=== PATIENT | female | born 2000 | race Caucasian/White ===

== ENCOUNTER 2024-10-14 07:46 | Outpatient (CLI) | payer BC, SELFPAY ==
--- OUTSIDE RECORDS SUMMARY | 2024-10-21 01:11 | XMS_ITS | Data Portability ---
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 She is going to try to exercise a little bit more watch her diet. 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 Sleep study given snoring possible apnea and fatigue she will see me back in 3 months. Healthy lifestyle care instructions [email or web address] Not available 08/26/2024 14:52:26 Plan of Treatment Reminders Order Date Submit Date Provider Last Modified By Organization Details Last Modified Time Details Appointments ANY 15 2024 09:30A Vianney Cruz MD Not available Not available Not available Lab lipid panel, serum 2023 024 [facility], [address], [place], [address], 09/14/2024 12:53:18 vitamin D, 25-hydrox y, total, serum 2023 024 [employer] [facility], [address], [place], [address], 09/14/2024 12:53:13 CBC w/ auto diff 2023 024 [employer] [facility], [address], [place], [address], 09/14/2024 12:52:44 CMP, serum or plasma 2023 024 [facility], [address], [place], [address], 09/14/2024 12:52:50 T3, free, serum or plasma 2023 024 [facility], [address], [place], [address], 09/14/2024 12:52:55 TSH, serum or plasma 2023 024 [facility], [address], [place], [address], 09/14/2024 12:53:02 T4, free, serum 2023 024 [facility], [address], [place], [address], 09/14/2024 12:52:26 iron + TIBC + ferritin, serum 2023 024 [facility], [address], [place], [address], 09/13/2024 09:36:36 vitamin B12 + folate, serum or blood 2023 024 [facility], [address], [place], [address], 09/14/2024 12:53:08 Referral gynecolog ist referral 2023 024 brett Huerta MD, [address], [address], [place], [address], 10/19/2024 16:11:51 Procedures None recorded. Surgeries None recorded. Imaging home sleep study 2023 024 [facility] ([facility]), [address], [place], [address], 10/06/2024 10:08:03 Medication Orders None recorded. Patient TargetsNo targets recorded. 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 Problems Name Problem SNOMED Code Status Onset Date Resolution Date Notes Provider Name and Address Organization Details Recorded Time Screening for cardiovascular system disease Active 2023 ERASTO [place], [place] - [facility] 4 15:32:04 Vitamin D deficiency 22394583 Active 2023 ERASTO [place] [facility] 4 15:32:05 Serum iron below reference range 513117882 Active 2023 ERASTO [place] [facility] 4 15:32:06 Fatigue 41503625 Active 2023 ERASTO [place] [facility] 4 15:32:07 Obesity 452872253 Active 2023 ERASTO [place] [facility] 4 15:32:07 Problem Notes None recorded. Procedures Surgical History Date Name Laterality Status Provider Name and Address Organization Details Recorded Time Tonsillectomy completed Lucretia Bennett [place] - [facility] 08/23/2024 14:34:20 Imaging Results None recorded. Procedure Notes None recorded. Medical Equipment None Reported. Allergies No known drug allergies Medications Name Sig Start Date Stop Date Status Note LastModified by Organization Details LastModified Time methylpredniso lone 4 mg tablets in a dose pack TAKE 6 TABLETS ON DAY 1 DIRECTED ON PACKAGE AND DECREASE BY 1 TAB EACH DAY FOR A TOTAL OF 6 DAYS active Not Available Not Available No t Available escitalopram 10 mg tablet TAKE 1 TABLET BY MOUTH EVERY DAY active Not Available Not Available No t Available Jyothi 0.25 mg-35 mcg tablet TAKE 1 TABLET BY MOUTH DAILY active Not Available Not Available No t Available Vitals Date Recorded Body height Provider Name an d Address Organization Details Last Updated DateTime 08/23/2024 160.02 cm ERASTO Menod[place] - [facility] 14:29:31 Date Recorded Body mass index (BMI) Body weight Provider Name and Address Organization Details Last Updated DateTime 08/23/2024 33.9 kg/m2 66102.86 g Lucretia Bennett [place] - [facility] 1 10/23/2023 14:29:34 Date Recorded Heart rate Provider Name an d Address Organization Details Last Updated DateTime 08/23/2024 89 /min Lucretiaxiomara Bennett [place] [facility] 14:44:32 Date Recorded Oxygen saturation Oxygen saturation in Arterial blood by Pulse oximetry Provider Name and Address Organization Details Last Updated DateTime 08/23/2024 98 % 98 % Lucretiaxiomara Bennett [place] [facility] 08/23/2024 14:44:35 Date Recorded Systolic blood pressure Diastolic blood pressure Provider Name and Address Organization Details Last Updated DateTime 08/23/2024 132 mm[Hg] 68 mm[Hg] Lucretia Bennett MA [facility] 08/23/2024 14:45:01 Social History Question Answer Notes LastModified by Organizat ion Details LastModified Time Tobacco Smoking Status Never Smoker Lucretia Bennett MA [facility] 08/23/2024 14:32:52 Do You Have An Advance Directive? No Information n ot available 08/23/2024 What Is Your Level Of Alcohol Consumption? Occasional Information not available 08/23/2024 Are You Blind Or Do You Have Difficulty Seeing? No Information n ot available 08/23/2024 What Is Your Level Of Caffeine Consumption? Moderate Information not available 08/23/2024 In The 14 Days Before Symptom Onset, Have You Had Close Contact With A Laboratory-confirm ed COVID-19 While That Case Was Ill? No Information n ot available 08/23/2024 In The 14 Days Before Symptom Onset, Have You Had Close Contact With A Person Who Is Under Investigation For COVID-19 While That Person Was Ill? No Information not available 08/23/2024 Have You Been To An Area Known To Be High Risk For COVID-19? No Information not available 08/23/2024 Are You Currently Employed? Yes Information not available 08/23/2024 Are You Deaf Or Do You Have Serious Difficulty Hearing? No Information not available 08/23/2024 What Type Of Diet Are You Following? 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 No Information not available 08/23/2024 What Was The Date Of Your Most Recent Tobacco Screening? 08/23/2024 Information not available 08/23/2024 What Is Your Relationship Status? Single Information not available 08/23/2024 Do You Use Your Seat Belt Or Car Seat Routinely? Yes Information not available 08/23/2024 Do You Have Smoke And Carbon Monoxide Detectors In Your Home? Yes Information not available 08/23/2024 Do You Feel Stressed (tense, Restless, Nervous, Or Anxious, Or Unable To Sleep At Night)? [id number] Information not available 08/23/2024 Do You Use Any Illicit Or Recreational Drugs? No Information not available 08/23/2024 Do You Use Sunscreen Routinely? Yes Information not available 08/23/2024 Has Tobacco Cessation Counseling Been Provided? No Information not available 08/23/2024 Do You Or Have You Ever Used Any Other Forms Of Tobacco Or Nicotine? No Information not available 08/23/2024 Sex: Female Functional Status Question Answer Note LastModified by Organization D etails LastModified Time Are you able to care for yourself? Yes Information n ot available 08/23/2024 What is your exercise level? None Information not available 08/23/2024 Mental Status None recorded. Family History Relationship Description Onset Age of this Age Resolved Age Notes LastModified by Organization Details LastModified Time Mother Heart disease mebyma Not available 2023 14:30:58 Paternal Grandmother Heart disease mebyma Not available 2023 14:31:12 Paternal Grandmother Malignant tumor of lung mebyma Not available 2023 14:32:00 Paternal Grandmother Neoplasm of skin mebyma Not available 2023 14:32:07 Maternal Grandfather Alcohol abuse mebyma Not available 2023 14:31:31 Maternal Grandfather Malignant tumor of colon mebyma Not available 2023 14:32:17 Medical History Condition Response Coronary Artery Disease N Atrial Fibrillation N High Blood Pressure N Depression Y COPD N Blood Clots N Anxiety Disorder Y Muscle, Joint, or Bone Problems N Acid Reflux (GERD) N Cancer N Stroke N High Cholesterol N Liver Disease N Headaches N Kidney or Bladder Problems N GI Problems N Skin Problems N Anemia N Heart Attack ([place]) N Diabetes N Seizures/Epilepsy N Asthma N Allergies N Hepatitis N Osteoporosis N Heart Failure N Gynecological History Statement/Question Response Flow Moderate Date of LMP 07/04/2024 Frequency of Cycle (Q days) 28 Menses Monthly Y Duration of Flow (days) 5 Current Control Method Sterilizati on LMP Definite Obstetrics History GPAL:G 0 P 0 0 0 0 Immunizations Vaccine Type Date Status Note Provider Nam e and Address Organization Details Recorded Time Hib-Hep B 3 completed Maria Elena Lug[place], [place] [facility] 08/23/2024 15:34:18 Hib-Hep B 3 mirian Lug[place] [facility] 08/23/2024 15:34:18 Hib-Hep B 2 mirian [place] [facility] 08/23/2024 15:34:18 IPV 4 mirian Lug[place] [facility] 08/23/2024 15:34:18 IPV 3 mirian Lug[place] [facility] 08/23/2024 15:34:18 IPV 7 mirian Lug[place] [facility] 08/23/2024 15:34:18 IPV 2 mirian Lug[place] [facility] 08/23/2024 15:34:18 MMR 3 completed Maria Elena Lug[place] [facility] 08/23/2024 15:34:18 MMRV 7 completed Maria Elena [place] [facility] 08/23/2024 15:34:18 COVID-19 vaccine, vector-nr, rS-Ad26, PF, 0.5 mL 1 completed Maria Elena [place] [facility] 08/23/2024 15:34:18 pneumococcal conjugate PCV 7 3 completed Maria Elena Lug[place] [facility] 08/23/2024 15:34:18 pneumococcal conjugate PCV 7 3 completed Maria Elena [place] [facility] 08/23/2024 15:34:18 pneumococcal conjugate PCV 7 2 completed Maria Elena Lug[place] [facility] 08/23/2024 15:34:18 influenza, unspecified formulation 3 completed Maria Elena [place] [facility] 08/23/2024 15:34:18 Tdap 4 completed Maria Elena [place] [facility] 08/23/2024 15:34:18 varicella 3 completed Maria Elena [place] [facility] 08/23/2024 15:34:18 HPV, quadrivalent 5 completed Maria Elena [place] [facility] 08/23/2024 15:34:18 HPV, quadrivalent 4 completed Maria Elena [place] [facility] 08/23/2024 15:34:18 HPV, quadrivalent 4 completed Maria Elena [place] [facility] 08/23/2024 15:34:18 meningococcal MCV4P 9 completed Maria Elena [place] [facility] 08/23/2024 15:34:18 meningococcal MCV4P 4 completed Maria Elena [place] [facility] 08/23/2024 15:34:18 DTaP 4 completed Maria Elena [place] [facility] 08/23/2024 15:34:19 DTaP 3 completed Maria Elena [place] [facility] 08/23/2024 15:34:19 DTaP 3 completed Maria Elena [place] [facility] 08/23/2024 15:34:19 DTaP 7 completed Maria Elena [place] [facility] 08/23/2024 15:34:19 DTaP 2 completed [place] Elena [place] [facility] 08/23/2024 15:34:19 Influenza, split virus, trivalent, PF 4 completed Josue Mack LPN [place] [facility] 07/16/2024 12:53:09 COVID-19, mRNA, LNP-S, PF, 50 mcg/0.5 mL 4 completed Josue Mack L[place] [facility] 07/16/2024 12:53:09 Past Encounters Encounter ID Performer Location Encounter Start Date Encounter Closed Date Diagnosis/Indication Diagnosis SNOMED-CT Code Diagnosis ICD10 Code Diagnosis Note [id number] Josue Mack LPN ON LICENSE OF [facility] [address] [place] [address] 07/16/2024 12:07:32 07/19/2024 09:44:22 Administration of influenza vaccine 00485523 Z23 Administra tion of SARS-CoV-2 mRNA vaccine 7558789578 Z23 [id number] Logan Cruz MD ON LICENSE OF [facility] [address] [place] [address] 08/23/2024 14:14:34 08/23/2024 15:39:47 Obesity 983202711 E66.9 Fatigue 27869598 R53.83 Serum iron below reference range 627484108 R79.0 Vitamin D deficiency 347 83295 E55.9 Screening for cardiovascular system disease 512962561 Z13.6 Gynecologi c examination 42024876 Z01.419 Sleep disorder 70580024 G47.9 Health Concerns Section Related Observation LastModified by Organization Detai ls LastModified Time None Recorded Concern Status LastModified by Organization Details LastModified Time None Recorded Advance Directives Directive N: Payers Encounter Date Sequence Insurance Name Policy Number Policy Jo Covered Member ID Jo Member ID Guarantor Name 08/23/2024 1 [place] [id number] Pato Germain [id number] Pato Germain Notes Date Note Type Note Provider Name and Address Organization Details Recorded Time 08/23/2024 text/html 22 new patient b een having problems with some anxiety stable on generic Lexapro. Also has had problems with fatigue ongoing for quite some time. Medications escitalopram 10 mg daily. control pills. 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
--- OUTSIDE RECORDS SUMMARY | 2024-10-21 01:12 | XMS_ITS | Continuity of Care Document ---
Author Organization [employer] Address [address] [place] [address] Phone Care Team Providers Care Registrar Assistant Name Role Phone Ricci Bradley CARMEN Unavailable Unavailable Procedures Procedure Date Prophylaxis ??? Adult Bitewings Two Films Intraoral Periapical First Norm 24 Comprehensive Oral Evaluation 4 Resin-Based Composite ??? Three Surfaces , Posterior Limit Oral Eval-prob Focused Intraoral Periapical First Norm 18 Resin-Based Composite ??? Three Surfaces , Posterior Periodic Oral Evaluation ??? Established Patient Bitewings Two Films Sealant ??? Per Tooth Sealant ??? Per Tooth Resin-Based Composite ??? Two Surfaces, Posterior Resin-Based Composite ??? Three Surfaces , Posterior Prophylaxis Child Topical Application Of Fluoride (Prophyl axis Not I Resin-Based Composite ??? One Surface, P osterior Resin-Based Composite ??? One Surface, P osterior Periodic Oral Examination Bitewings Two Films Intraoral Periapical First Norm 11 Limit Oral Eval-prob Focused Advance Directives Directive Yes / No Effective Date File Name No Information Encounters Encounter Description Practice Location Reason(s) For Visit Diagnoses Date Provider Providers Copied on Encounter [facility] [employer], [address], [place], [place], [address], tel:[phone] [facility] Deposits [accretions] on teeth Ricci Huerta. [address], [place], [place], [address] , [place]. tel:[phone] Referring Provider: Bradley Lopes, [address], [place], [address] . tel:[phone] [facility] [employer], [address], [place], [place], [address], tel:[phone] [facility] Encounter for dental exam and cleaning w abnormal findingsAcute apical periodontitis of pulpal origin Ricci Huerta. [address], [place], [place], [address] , [place]. tel:[phone] Referring Provider: Bradley Lopes, [address], [place], [address] . tel:[phone] [facility], [address], [place], [place], [address], [place] tel:[phone] [facility] DEN-Dental caries on smooth surface penetrating into dentin Ricci Huerta. [address], [place], [place], [address] , [place]. tel:[phone] Referring Provider: Bradley Lopes, [address], [place], [address] . tel:[phone] [facility] [employer], [address], [place], [place], [address], [place] tel:[phone] [facility] DEN-Disorder of teeth and supporting structures, unspecifiedDEN- Acute apical periodontitis of pulpal origin Ricci Huerta. [address], [facility], [address] , [place]. tel:[phone] Referring Provider: Bradley Lopes, [address], [place], [address] . tel:[phone] [facility], [address], [place], [place], [address], [place] tel:[phone] [facility] Dental examination Ricci Huerta. [address], [place], [address] , [place]. tel: [phone] Referring Provider: Bradley Lopes, [address], [place], [address] . tel:[phone] [facility], [address], [place], [place], [address], [place] tel:[phone] [facility] Dental examination Ricic Huerta. [address], [place], [place], [address] , [place]. tel: [phone] Referring Provider: Bradley Lopes, [address], [place], [address] . tel:[phone] [facility], [address], [place], [place], [address], [place] tel:[phone] [facility] Dental examination Ricci Huerta. [address], [place], [address] , [place]. tel: [phone] Referring Provider: Bradley Lopes, [address], [place], [address] . tel:[phone] [facility], [address], [place], [place], [address], [place] tel:[phone] [facility] Dental examination Walt Sotelo. [address], [place], [address] , [place]. tel: [phone] Referring Provider: Ashleigh Arndt, [address], [place], [address] . tel:[phone] [facility], [address], [place], [place], [address], [place] tel:[phone] [facility] No Information Walt Sotelo. [address], [place], [address] , [place]. [phone] Referring Provider: Ashleigh Arndt, [address], [place], [address] . tel:[phone] [facility], [address], [place], [place], [address], [place] tel:[phone] [facility] Dental examination Ricci Huerta. [address], [place], [address] , [place]. [phone] Referring Provider: Bradley Lopes, [address], [place], [address] . tel:[phone] [facility] [employer], [address], [place], [place], [address], [place] tel:[phone] [facility] Dental examination Walt Sotelo. [address], [place], [address] , [place]. tel:[phone] Referring Provider: Ashleigh Arndt, [address], [place], [address] . tel:[phone] [facility], [address], [place], [place], [address], [place] tel:[phone] [facility] Dental examination Walt Sotelo. [address], [place], [address] , [place]. [phone] Referring Provider: Ashleigh Arndt, [address], [place], [address] . tel:[phone] [facility], [address], [place], [place], [address], tel:[phone] [facility] Dental examination Walt Ashleigh. [address], [place], [place], [address] , . tel:[phone] Referring Provider: Ashleigh Arndt, [address], [place], [address] . tel:[phone] [facility], [address], [place], [place], [address], tel:[phone] [facility] Dental examination Walt Sotelo. [address], [place], [place], [address] , . tel:[phone] Referring Provider: Ashleigh Arndt, [address], [place], [address] . tel:[phone] Family History Family Member Type Diagnosis Age At Onset No Information Payers Payer name Insurance type Covered republican ID Authoriza tion(s) No Information Social History Type Description Quantity Date Captured Comments Sex Female Smoking Status No Information Sexual Orientation Don't Know Gender Identity Choose not to disclose 024 Chief Complaint And Reason For Visit No Information Reason For Referral Reason For Referral No Information Plan Of Treatment Date Type Action Status Appointment Pato Germain BOOKED Appointment Pato Germain BOOKED Appointment Pato Germain BOOKED Appointment Pato Germain BOOKED History Of Present Illness Encounter Date Complaint History Of Prese nt Illness No Information Functional Status Date Functional Assessmen t No Information Instructions Date Instruction Additional Infor mation No Information Assessments Type Assessment Date No Information Patient Care Teams Name Effective Dates (start - stop) Status Members No Information
[2024-11-02 13:04] VITALS: BMI 33.6
--- NOTE | 2024-11-02 13:04 | WPDHOMESLEEP ---
Sleep Study - Home Unattended Date of Study: 10/14/24 Ordering Provider: Moreno CruzMD Interpreting Provider: Judit Limon, DO Home Sleep Study Type: Watch PAT Height: 1.6 m Weight: 86.183 kg Body Mass Index: 33.6 Neck Circumference (inches): 13 [place]: 11 Reason for Sleep Study Daytime hypersomnia Sleep History The patient is a 24-year-old female that had a sleep study by her primary care for evaluation of sleep apnea. The patient admits to snoring loudly, it excessive daytime sleepiness and interruptions in breathing while asleep. The patient does choke or gasp at night. She denies having trouble breathing on her back. She does have morning headaches. She does have a dry or sore mouth / throat in the morning. She denies nocturnal heartburn. She urinates twice throughout the night. She denies having difficulty falling asleep or staying asleep. She denies having difficulty returning to sleep if she wakes up throughout the night. She denies any hypnotic or sedative use. She denies feeling anxious about sleep. She does feel tired or sleepy during the day. She does feel tired in the morning. She does have the urge to fall asleep during the day. She does feel drowsy while driving. She denies sleep paralysis, cataplexy and hypnagogic/ hypnopompic hallucinations. She does clench or grind her teeth. She denies having a restless feeling in her legs. She denies kicking or jerking her legs excessively. She goes to bed at 9:00 p.m. on work days and at 11:00 p.m. on her days off. It takes her 15 minutes to fall asleep. She gets 8-1/2 hours of sleep on work days and 9-1/2 hours of sleep on her days off. Her sleep is a little more restorative on her days off. She denies taking any planned naps. She denies dream enactment behavior. She denies sleep walking. She denies consuming any caffeinated beverages throughout the day. She denies alcohol and tobacco use. She exercises 1-2 nights per week. Sleep Procedure The sleep study was completed using WatchPAT a technically adequate device with seven channels: peripheral arterial tone, actigraphy, body position, snore, respiratory movement, pulse oximetry, sleep staging, and heart rate. Prior to using the device, the patient received verbal and written instructions for its application and was provided with the help desk phone number for additional telephonic instruction with 24-hour availability of qualified personnel to answer questions. The study was scored using AASM guidelines. Sleep Architecture The total recording time is 8 hrs, 25 min. The total sleep time is 7 hrs, 50 min. Sleep latency is 18 minutes. REM latency is 80 minutes. The patient had 7 episodes of waking. Sleep architecture shows 25.7% deep sleep, 40.5% light sleep, and (as % Total Sleep Time) showed NREM (Light 40.5%; Deep 25.7%), and a 33.8% stage REM. The patient spent 86.3% of total sleep time in the supine position. Sleep efficiency was 93.07. Respiratory Analysis The overall AHI (pAHI 3%:) is 9.2. The central AHI is 0.3. The AHI was 10.4 in NREM and 6.8 in REM sleep. The AHI was 10.4 in Supine and 1.9 in Non-supine sleep. Percent of [place] respirations is 0.0. Oximetry Data The oxygen desaturation index (YANET 4%:) is 2.7. The mean saturation is 94%, and the lowest saturation is 88%. Time spent with saturation < 88% is 0.0 minutes. Snoring Profile Snoring average intensity is 43 dB. The patient snored above 45 decibels for 121.2 minutes, 25.7% of sleep time. Cardiac Profile The average pulse rate is 70 beats per minutes. The lowest pulse rate is 58 bpm. The highest pulse rate reported is 116 bpm. Atrial fibrillation nor premature beats were detected. Assessment and Plan Assessment and Plan (1) WILL (obstructive sleep apnea): Code(s): G47.33 - Obstructive sleep apnea (adult) (pediatric) Status: Acute Assessment and Plan: The patient had an overall AHI of 9.2 with desaturation down to 88%. This is consistent with mild sleep apnea. Due to the patient's daytime hypersomnia, she qualifies for treatment. I recommend that the patient be prescribed Resmed AirSense 11 AutoPAP 5-15 cm H2O, CPAP mask/filters/tubing and heated humidity. A mandibular advancement device is also an acceptable treatment option. This should be used with all episodes of sleep.? Compliance should be reviewed within 31-90 days of starting therapy for usage greater than 4 hours per night greater than 70% of the nights. The patient should be asked about symptoms such as?excessive daytime sleepiness, quality of sleep, decreased nocturia, increased?mental functioning such as memory, mood, and concentration. Data The data obtained during this sleep study is adequate for interpretation. Certification This sleep study has been reviewed by a board certified sleep medicine physician.
== END 2024-10-15 14:29 | disposition home or self-care (01) ==
LOC: ANHCSM 07:48
PROVIDERS: PCP Internal Medicine; Visit Provider Internal Medicine
DX: G47.9 Sleep disorder, unspecified (principal); G47.33 Obstructive sleep apnea (adult) (pediatric)
CPT/HCPCS: 95800